=== PATIENT | female | born 1940 | race Caucasian/White ===

== ENCOUNTER 2022-06-12 14:27 | Inpatient (IN) | payer MEDICARE ==
[~2022-06-12] VITALS: Ht 177.8 cm; Wt 54.4 kg
--- NOTE | 2022-06-12 14:35 | NUR ---
BIB [facility] FROM HOME,C/O BACK PAIN 5 AFTER A SYNCOPAL EPISODE AND GLF. THE PATIENT IS ALERT AND ABLE TO MAKE NEEDS KNOWN. IN ROOM AIR AND DENIES SOB. RESPIRATION REGULAR AND UNLABORED. WILL CONTINUE TO MONITOR THE PATIENT.
--- NOTE | 2022-06-12 15:53 | NUR ---
COVID ANTIGEN SWAB DONE AND SENT TO THE LAB
[2022-06-12] MEDS ORDERED: MORPHINE SULFATE INJ 2 MG/ML DISP.SYRIN ONE ×2 (15:56→18:19)
[2022-06-12 15:58] LABS: BASOPHILS # (AUTO) 0.1 K/uL (0.0-0.2); BASOPHILS % (AUTO) 0.5 % (0.0-2.0); EOSINOPHILS % (AUTO) 1.5 % (0.0-6.0); HEMATOCRIT 27 % (33-45); HEMOGLOBIN 8.1 g/dL (11.5-14.8); LYMPHOCYTES # (AUTO) 2.5 K/uL (0.8-4.8); LYMPHOCYTES % (AUTO) 19.6 % (20.0-44.0); MEAN CORPUSCULAR HGB CONC 30 g/dl (31.0-36.0); MEAN CORPUSCULAR VOLUME 71 fL (82-100); MONOCYTES # (AUTO) 1.1 K/uL (0.1-1.30); MONOCYTES % (AUTO) 9.1 % (2.0-12.0); NEUTROPHILS # (AUTO) 8.7 K/uL (1.8-8.9); NEUTROPHILS % (AUTO) 69.3 % (43.0-81.0); PLATELET COUNT (AUTO) 618 K/uL (150-450); RED BLOOD CELL COUNT(AUTO) 3.78 MIL/uL (4.0-5.2); WHITE BLOOD COUNT (AUTO) 12.5 K/uL (4.3-11.0)
[2022-06-12] MEDS ORDERED: HYDROCODONE/APAP 5/325MG TABLET PO ONE (16:00)
--- NOTE | 2022-06-12 16:12 | NUR ---
MOVE SHEET SUBMITTED.
[2022-06-12 16:22] LABS: CALCIUM, SERUM 9.6 mg/dL (8.5-10.1); CARBON DIOXIDE 30 mmol/L (21-32); CHLORIDE 100 mmol/L (98-107); CREATININE 0.7 mg/dL (0.6-1.3); GLUCOSE 124 mg/dL (74-106); POTASSIUM 3.9 mmol/L (3.5-5.1); SODIUM SERUM 134 mmol/L (136-145); UREA NITROGEN, BLOOD 19 mg/dL (7-18)
[2022-06-12] MEDS ORDERED: ALEN70TA80 PO (16:22)
[2022-06-12] MEDS ORDERED: PRED10TA PO (16:22)
[2022-06-12] MEDS ORDERED: DULO60CA64 PO (16:22)
[2022-06-12] MEDS ORDERED: HYDR25TA4 PO (16:22)
[2022-06-12] MEDS ORDERED: MORPHINE SULFATE INJ 2 MG/ML DISP.SYRIN IV ONE ×2 (16:30→18:30)
[2022-06-12 16:34] LABS: ALANINE AMINOTRANSFERASE 28 U/L (12-78); ALBUMIN 1.9 g/dL (3.4-5.0); ALKALINE PHOSPHATASE 139 U/L (46-116); ASPARTATE AMINOTRANSFERASE 51 U/L (15-37); BILIRUBIN,DIRECT 0.1 mg/dL (0.0-0.2); BILIRUBIN,TOTAL 0.4 mg/dL (0.2-1.0); TOTAL PROTEIN, SERUM 7.1 g/dL (6.4-8.2)
[2022-06-12] MEDS ORDERED: IV NS 0.9% 250 ML IV ONE (16:56)
[2022-06-12] MEDS ORDERED: IOHEXOL-350 100 ML VIAL IV ONE (16:56)
[2022-06-12 17:16] LABS: EOSINOPHILS % (MANUAL) 1 % (0-4); LYMPHOCYTES % (MANUAL) 19 % (16-48); MONOCYTES % (MANUAL) 6 % (0-11.0); NEUTROPHILS % (MANUAL) 74 (42-76)
--- NOTE | 2022-06-12 19:14 | NUR ---
REPORT GIVEN TO NURSE VELEZ FOR YAQUELIN
[2022-06-12] MEDS ORDERED: hydrALAZINE HCL IV 20 MG VIAL IV PRN (22:00)
[2022-06-12] MEDS ORDERED: ONDANSETRON HCL/PF 4 MG/2 ML VIAL IVP PRN (22:00)
[2022-06-12] MEDS ORDERED: ACETAMINOPHEN 325 MG TABLET PO PRN (22:00)
[2022-06-12] MEDS ORDERED: IV NS 0.9% 1,000 ML IV SCH (22:00)
--- NOTE | 2022-06-12 22:56 | NUR ---
PT TRANSFERRED TO TELE 116-1 VIA ACLS PROTOCOL. REPORT GIVEN TO KIRAN BRICEÑO FOR YAQUELIN
--- NOTE | 2022-06-12 23:00 | NUR ---
INDUSTRIAL SALES ENGINEER ADMITTING NOTES REPORT RECEIVED FROM AGUSTIN. PATIENT WAS TRANSFERRED FROM ER VIA GURNEY, WITH NO SIGNS OF DISTRESS. ORIENTED PATIENT TO ROOM SET UP AND EDUCATED PATIENT ON THE USE OF CALL LIGHT. V/S TAKEN, STABLE AND RECORDED. BP 146/63, RR 20, AK 88, O2 SAT 99% AND TEMP 97.9 WITH BED SCALE WEIGHT OF 129 LBS. SKIN ASSESSMENT DONE AND PICTURES TAKEN. UTERINE PROLAPSE AND HEMORRHOIDS PRESENT. INFORMED DR. ZAMORA. ALL BELONGING CHECKED AND BELONGIN LIST SIGNED. WILL CONTINUE TO MONITOR THE PATIENT AND WILL CARRY OUT ACTIVE MD ORDERS.
[2022-06-12 23:45] LABS: FERRITIN 423 ng/mL (8-388)
[2022-06-12 23:46] LABS: IRON, SERUM 15 ug/dl (50-175); TOTAL IRON BINDING CAPACITY 238 ug/dl (250-450)
[2022-06-13] VITALS (7 sets, daily range): BP systolic 119–146; BP diastolic 53–66
[2022-06-13] MEDS: MORPHINE SULFATE INJ 2 MG/ML DISP.SYRIN IV PRN ×3 (00:23→21:58)
[2022-06-13] MEDS ORDERED: IV NS 0.9% 1,000 ML IV SCH (00:30)
[2022-06-13] MEDS ORDERED: FERROUS SULFATE (325 MG) 325 MG/TAB TABLET PO SCH (00:30)
--- NOTE | 2022-06-13 00:45 | NUR ---
RN NOTES-DIFFICULTY SWALLOWING PATIENT NOT ABLE TO TAKE PO MEDS DUE TO DIFFICULTY SWALLOWING. PATIENT IS IN PAIN IF HOB IS ELEVATED. PATIENT PREFERRED ALMOST FLAT ON BED. RISK OF ASPIRATION. INFORMED DR. ZAMORA. WILL CONTINUE TO MONITOR THE PATIENT.
[2022-06-13] MEDS: PANTOPRAZOLE 40 MG VIAL IV SCH ×3 (00:58→17:35)
[2022-06-13 07:13] LABS: BASOPHILS # (AUTO) 0.1 K/uL (0.0-0.2); BASOPHILS % (AUTO) 0.6 % (0.0-2.0); EOSINOPHILS % (AUTO) 3.7 % (0.0-6.0); HEMATOCRIT 26 % (33-45); HEMOGLOBIN 8.1 g/dL (11.5-14.8); LYMPHOCYTES # (AUTO) 2.3 K/uL (0.8-4.8); MEAN CORPUSCULAR HGB CONC 31 g/dl (31.0-36.0); MEAN CORPUSCULAR VOLUME 71 fL (82-100); MONOCYTES # (AUTO) 1.2 K/uL (0.1-1.30); NEUTROPHILS # (AUTO) 6.9 K/uL (1.8-8.9); NEUTROPHILS % (AUTO) 63.7 % (43.0-81.0); PLATELET COUNT (AUTO) 593 K/uL (150-450); RED BLOOD CELL COUNT(AUTO) 3.71 MIL/uL (4.0-5.2); WHITE BLOOD COUNT (AUTO) 10.8 K/uL (4.3-11.0)
--- NOTE | 2022-06-13 07:15 | NUR ---
TELE BRANCH CONTROLLER OPENING NOTES RECEIVED PATIENT SLEEPING. AWAKENS IN VERBAL STIMULI. A/O X 4. NO S/S PAIN NOTED AT THIS TIME. ON RA, BREATHING EVEN AND UNLABORED, NO DISTRESS OR SOB NOTED. FLAT ON BED. IV ACCESS ON LFA #20G RUNNING NS @ 70ML/HR, INFUSING WELL. PATIENT HAD DIFFICULTY SWALLOWING WATER, NOTIFIED DR. DR KWOK TO PLACE PATIENT NPO AND ORDERED A SWALLOW EVAL. SAFETY MEASURES WILL BE MAINTAINED THROUGHOUT THE SHIFT. WILL CONTINUE TO MONITOR.
--- NOTE | 2022-06-13 07:32 | NUR ---
GLASS BLOWING INSTRUCTOR CLOSING NOTES PATIENT CURRENTLY SLEEPING. AWAKENS IN VERBAL STIMULI. A/O X 4. NO S/S PAIN NOTED AT THIS TIME. ON RA, BREATHING EVEN AND UNLABORED, NO DISTRESS OR SOB NOTED. FLAT ON BED. PATIENT WITH CERVICAL COLLAR. IV ACCESS ON LFA #20G RUNNING NS @ 70ML/HR, INFUSING WELL. SAFETY MEASURES MAINTAINED THROUGHOUT THE SHIFT. WILL ENDORSE TO THE NEXT SHIFT
[2022-06-13 08:04] LABS: ALBUMIN 1.8 g/dL (3.4-5.0); BILIRUBIN,TOTAL 0.4 mg/dL (0.2-1.0); CALCIUM, SERUM 9.3 mg/dL (8.5-10.1); CREATININE 0.6 mg/dL (0.6-1.3); MAGNESIUM 1.6 mg/dL (1.8-2.4); POTASSIUM 3.7 mmol/L (3.5-5.1); TOTAL PROTEIN, SERUM 6.8 g/dL (6.4-8.2)
[2022-06-13] MEDS: HYDROCHLOROTHIAZIDE 25 MG TABLET PO SCH (09:00)
[2022-06-13] MEDS ORDERED: predniSONE 10 MG TABLET PO SCH (09:00)
[2022-06-13] MEDS: DULOXETINE HCL 30 MG CAPSULE.DR PO SCH (09:00)
[2022-06-13] MEDS: predniSONE 20 MG TABLET PO SCH (09:00)
--- NOTE | 2022-06-13 09:02 | NUR ---
ELIGIBILITY SERVICES REPRESENTATIVE NOTE PATIENT NPO. HELD PO MEDICATION
[2022-06-13] MEDS: Magnesium 1GM/D5W 100ML PREMIX 100 ML IV SCH ×2 (12:29→13:45)
--- NOTE | 2022-06-13 12:51 | NUR ---
given Mg via IV.
[2022-06-13 14:22] LABS: THYROID STIMULATING HORMONE 3.032 uIU/mL (0.358-3.74)
[2022-06-13] MEDS: SOD FERRIC GLUC 125 MG in IV NS 0.9% 100 ML IV SCH (15:40)
[2022-06-13] MEDS: IV NS 0.9% 1,000 ML IV PRN (17:09)
--- NOTE | 2022-06-13 18:26 | NUR ---
TELE [employer] [address] POLICE OFFICER CLOSING NOTES PATIENT AWAKE. A/O X 4. NO S/S PAIN NOTED AT THIS TIME. ON RA, BREATHING EVEN AND UNLABORED, NO DISTRESS OR SOB NOTED. BED SLIGHTLY ELEVATED. IV ACCESS ON LFA #20G RUNNING NS @ 70ML/HR, INFUSING WELL. SAFETY MEASURES IN PLACE. WILL ENDORSE TO METAL REED TUNER NURSE.
[2022-06-13 18:48] LABS: BILIRUBIN,URINE 1+ (NEGATIVE); COLOR,URINE YELLOW (YELLOW); LEUKOCYTE ESTERASE ,URINE TRACE (NEGATIVE); NITRITE, URINE NEGATIVE (NEGATIVE); PH,URINE 5.5 (5.0-8.0); PROTEIN,URINE TRACE mg/dl (NEGATIVE); UGLUCOSE NEGATIVE (NEGATIVE)
--- NOTE | 2022-06-13 19:47 | NUR ---
RN Opening Notes Received pt in bed, awake, speaking on phone. AOx4, able to make needs known. On NC 2LPM and tolerating well. No SOB noted. No s/sx of respiratory distress noted. Tele monitor detects SR with rate of 85. IV access LFA #20G running NS @ 70 mL/hr. Safety precautions in place: bed in lowest, locked position, siderails upX2, and brakes on. Table and call light within reach. All needs met at this time.
[2022-06-13 20:11] LABS: BACTERIA,URINE Many /HPF (None Seen); RBC,URINE 21-50 /HPF (0-2); SQUAMOUS EPITHELIAL CELL,UR Moderate /HPF (None Seen); WBC,URINE 0-2 /HPF (0-3)
[2022-06-13 20:12] LABS: FINE GRANULAR CASTS,URINE Few /LPF (None Seen)
--- NOTE | 2022-06-13 22:00 | NUR ---
RN Notes Administered morphine for pain per MD order. VS WNL.
[2022-06-13 22:23] LABS: HEMOGLOBIN 7.7 g/dL (11.5-14.8)
[2022-06-14] VITALS: BP 145/58
[2022-06-14 04:00] VITALS: BP 142/70
[2022-06-14] MEDS: IV NS 0.9% 1,000 ML IV PRN ×2 (06:05→20:15)
[2022-06-14 06:24] LABS: CALCIUM, SERUM 8.9 mg/dL (8.5-10.1); CREATININE 0.6 mg/dL (0.6-1.3); MAGNESIUM 1.9 mg/dL (1.8-2.4); PHOSPHORUS 3.4 mg/dL (2.5-4.9); POTASSIUM 3.2 mmol/L (3.5-5.1)
[2022-06-14 06:31] LABS: BASOPHILS # (AUTO) 0.1 K/uL (0.0-0.2); BASOPHILS % (AUTO) 0.5 % (0.0-2.0); EOSINOPHILS % (AUTO) 2.5 % (0.0-6.0); HEMATOCRIT 24 % (33-45); HEMOGLOBIN 7.2 g/dL (11.5-14.8); LYMPHOCYTES # (AUTO) 2.1 K/uL (0.8-4.8); MEAN CORPUSCULAR HGB CONC 30 g/dl (31.0-36.0); MEAN CORPUSCULAR VOLUME 71 fL (82-100); MONOCYTES # (AUTO) 1.2 K/uL (0.1-1.30); MONOCYTES % (AUTO) 10.7 % (2.0-12.0); NEUTROPHILS # (AUTO) 7.8 K/uL (1.8-8.9); NEUTROPHILS % (AUTO) 68.3 % (43.0-81.0); PLATELET COUNT (AUTO) 513 K/uL (150-450); RED BLOOD CELL COUNT(AUTO) 3.41 MIL/uL (4.0-5.2); WHITE BLOOD COUNT (AUTO) 11.5 K/uL (4.3-11.0)
--- NOTE | 2022-06-14 06:37 | NUR ---
RN Closing Notes Pt in bed, asleep, awakens to verbal stimuli. AOx4, able to make needs known. On NC 2LPM and tolerating well. No SOB noted. No s/sx of respiratory distress noted. Tele monitor detects SR with rate of 85. IV access LFA #20G running NS @ 70 mL/hr. All orders carried out. All needs met. Pt kept clean and dry. Safety precautions in place: bed in lowest, locked position, siderails upX2, and brakes on. Table and call light within reach. Will endorse to oncoming shift for YAQUELIN.
--- NOTE | 2022-06-14 07:25 | NUR ---
RN OPEN TELE NOTE: ALERT AND ORIENTED TO NAME TIME, PLACE AND SITUATION. RESPIRATIONS ARE EVEN AND UNLABORED WITH 02 2LPM NC SATING AT 96 %. IV ON LEFT FOREARM WITH IVF OF NS AT 70ML/HR. SEC ACCOUNTANT SINUS RHYTHM 94. HOB ELEVATED. BILATERAL HALF SIDE RAILS UP X2. BED IN LOW POSTION, EXIT ALARM ON. CALL LIGHT IN REACH.
[2022-06-14 08:00] VITALS: BP 132/58
[2022-06-14] MEDS ORDERED: POTASSIUM CHLORIDE 20 MEQ TAB.PRT.SR PO SCH (08:00)
[2022-06-14] MEDS: POTASSIUM CL. PREMIX PERIPHER. 50 ML IV SCH ×3 (08:04→11:07)
[2022-06-14 08:06] LABS: IMMUNOGLOBULIN A, SERUM 940 mg/dL (64-422); IMMUNOGLOBULIN G, SERUM 782 mg/dL (586-1602); IMMUNOGLOBULIN M, SERUM 18 mg/dL (26-217)
--- NOTE | 2022-06-14 08:55 | NUR ---
PATIENT NOTED TO HAVE PULLED OUT IV ON LEFT FOREARM. PATIENT STATED: "I AM SO SORRY, I JUST PULLED IT OUT." PATIENT TEACHING PROVIDED FOR USE OF IV, RISKS VS BENEFITS AND VERBALIZED UNDERSTANDING. WILL ESTABLISH A NEW LINE.
[2022-06-14] MEDS: PANTOPRAZOLE 40 MG TABLET.DR PO SCH (09:00)
[2022-06-14] MEDS: DULOXETINE HCL 30 MG CAPSULE.DR PO SCH (09:00)
[2022-06-14] MEDS: predniSONE 20 MG TABLET PO SCH (09:00)
[2022-06-14] MEDS: HYDROCHLOROTHIAZIDE 25 MG TABLET PO SCH (09:00)
--- NOTE | 2022-06-14 09:03 | NUR ---
JOSE SANTOS INFORMED OF RESIDENT ALL PO MEDS HELD DUE TO PATIENT IS NPO AWAITING [facility].
--- NOTE | 2022-06-14 09:08 | NUR ---
TOM GARCIA INFORMED PHARMACY INFORMED AND SOME OF THE MEDS ARE NOT ABLE TO CHANGE TO IV.
--- NOTE | 2022-06-14 09:30 | NUR ---
IV ON LEFT FOREARM 20G ESTABLISHED. PATENT. NO S/S OF COMPLICATIONS.
--- NOTE | 2022-06-14 11:30 | NUR ---
TOM GARCIA NP INFORMED DAUGHTER DAVID VENTURA WANTS TO TALK TO HER AT THIS GIVEN NUMBER .
[2022-06-14] MEDS: CEFTRIAXONE 1 G in IV D5W 50 ML IV SCH (11:40)
[2022-06-14 12:00] VITALS: BP 145/60
[2022-06-14 12:10] LABS: HEMOGLOBIN 7.4 g/dL (11.5-14.8)
[2022-06-14] MEDS: MORPHINE SULFATE INJ 2 MG/ML DISP.SYRIN IV PRN ×2 (13:30→20:14)
[2022-06-14] MEDS: SOD FERRIC GLUC 125 MG in IV NS 0.9% 100 ML IV SCH (14:05)
[2022-06-14 16:00] VITALS: BP 141/56
--- NOTE | 2022-06-14 18:57 | NUR ---
RN CLOSING TELE NOTE: ALERT AND ORIENTED TO NAME TIME, PLACE AND SITUATION. RESPIRATIONS ARE EVEN AND UNLABORED WITH 02 2LPM NC SATING AT 98 %. IV ON LEFT FOREARM WITH IVF OF NS AT 70ML/HR. COMMERCIAL ACCOUNT EXECUTIVE SINUS RHYTHM 96. HOB ELEVATED. BILATERAL HALF SIDE RAILS UP X2. BED IN LOW POSITION, EXIT ALARM ON. CALL LIGHT IN REACH.
--- NOTE | 2022-06-14 19:35 | NUR ---
RN OPENING NOTE RECEIVED PATIENT IN BED; AWAKE, ALERT AND ORIENTED X 4. ON O2 INHALATION @ 2 LPM VIA NASAL CANNULA; TOLERATING WELL. NOT IN ANY FORM OF RESPIRATORY OR CARDIAC DISTRESS NOTED AT THIS TIME. NO C/O PAIN OR DISCOMFORT. ON TELE MONITORING WHICH READS SR HR-87 BPM. WITH IV ACCESS ON LEFT FOREARM 20g; PATENT AND INTACT INFUSING WITH NS 1L RUNNING @ 70 ML/HR; FLUSHES WELL. ABLE TO MAKE NEEDS KNOWN. SAFETY PRECAUTIONS IMPLEMENTED: CALL LIGHT AND TABLE WITHIN REACH, SIDE RAILS UP X 3, BED IN LOWEST LOCKED POSITION. WILL CONTINUE PLAN OF CARE.
[2022-06-14 20:00] VITALS: BP 150/70
--- NOTE | 2022-06-14 20:14 | NUR ---
RN NOTE PT COMPLAINED PAIN ON HER BACK, NECK AND ABDOMEN WITH PAIN SCALE OF 8/10. PRN MORPHINE INJ 2 MG GIVEN IV ORDERED. WILL CONTINUE TO MONITOR AND REASSESS PT.
[2022-06-14 20:23] LABS: HEMOGLOBIN 7.2 g/dL (11.5-14.8)
[2022-06-15] VITALS: BP 145/54
[2022-06-15 04:00] VITALS: BP 126/56
--- NOTE | 2022-06-15 06:55 | NUR ---
RN CLOSING NOTE PATIENT IN BED; AWAKE, A/O X 4. ON O2 INHALATION @ 2 LPM VIA NASAL CANNULA; WELL TOLERATED. IN NO ACUTE DISTRESS. NO C/O PAIN OR DISCOMFORT. ON TELE MONITORING WHICH READS SR HR-97 BPM. WITH IV ACCESS ON LEFT FOREARM 20g; PATENT AND INTACT INFUSING WITH NS 1L RUNNING @ 70 ML/HR; FLUSHES WELL. ABLE TO MAKE NEEDS KNOWN. SAFETY PRECAUTIONS MAINTAINED: CALL LIGHT AND TABLE WITHIN REACH, SIDE RAILS UP X 3, BED IN LOWEST LOCKED POSITION. ENDORSED TO MORNING SHIFT FOR YAQUELIN.
--- NOTE | 2022-06-15 07:05 | NUR ---
RN OPENING NOTE PATIENT IN BED; AWAKE, A/O X 4. O2 @ 2 LPM VIA NASAL CANNULA; WELL TOLERATED. IN NO ACUTE DISTRESS. NO C/O PAIN OR DISCOMFORT. ON TELE MONITOR SR, IV ACCESS LEFT FOREARM 20g; PATENT AND INTACT, NS RUNNING @ 70 ML/HR; FLUSHES WELL. PT NPO UNTIL SWALLOW EVALUATION. ABLE TO MAKE NEEDS KNOWN. SAFETY PRECAUTIONS MAINTAINED: CALL LIGHT AND TABLE WITHIN REACH, SIDE RAILS UP X 3, BED IN LOWEST LOCKED POSITION. WILL CONTINUE TO MONITOR.
[2022-06-15 08:00] VITALS: BP 128/59
[2022-06-15] MEDS: predniSONE 20 MG TABLET PO SCH (08:34)
[2022-06-15] MEDS: DULOXETINE HCL 30 MG CAPSULE.DR PO SCH (08:34)
[2022-06-15] MEDS: PANTOPRAZOLE 40 MG TABLET.DR PO SCH (08:34)
[2022-06-15] MEDS: HYDROCHLOROTHIAZIDE 25 MG TABLET PO SCH (08:37)
[2022-06-15 08:59] LABS: BASOPHILS # (AUTO) 0.1 K/uL (0.0-0.2); BASOPHILS % (AUTO) 0.6 % (0.0-2.0); EOSINOPHILS % (AUTO) 2.9 % (0.0-6.0); HEMATOCRIT 24 % (33-45); HEMOGLOBIN 7.3 g/dL (11.5-14.8); LYMPHOCYTES % (AUTO) 18.4 % (20.0-44.0); MEAN CORPUSCULAR HGB CONC 30 g/dl (31.0-36.0); MEAN CORPUSCULAR VOLUME 72 fL (82-100); MONOCYTES % (AUTO) 9.4 % (2.0-12.0); NEUTROPHILS # (AUTO) 7.4 K/uL (1.8-8.9); NEUTROPHILS % (AUTO) 68.7 % (43.0-81.0); PLATELET COUNT (AUTO) 493 K/uL (150-450); RED BLOOD CELL COUNT(AUTO) 3.35 MIL/uL (4.0-5.2); WHITE BLOOD COUNT (AUTO) 10.8 K/uL (4.3-11.0)
[2022-06-15 10:01] LABS: CALCIUM, SERUM 8.7 mg/dL (8.5-10.1); CARBON DIOXIDE 23 mmol/L (21-32); CHLORIDE 105 mmol/L (98-107); CREATININE 0.5 mg/dL (0.6-1.3); GLUCOSE 85 mg/dL (74-106); MAGNESIUM 1.7 mg/dL (1.8-2.4); PHOSPHORUS 2.8 mg/dL (2.5-4.9); POTASSIUM 3.4 mmol/L (3.5-5.1); SODIUM SERUM 138 mmol/L (136-145); UREA NITROGEN, BLOOD 13 mg/dL (7-18)
[2022-06-15] MEDS: MORPHINE SULFATE INJ 2 MG/ML DISP.SYRIN IV PRN ×2 (10:14→21:13)
[2022-06-15] MEDS: CEFTRIAXONE 1 G in IV D5W 50 ML IV SCH (10:41)
[2022-06-15 11:54] LABS: HEMOGLOBIN 7.3 g/dL (11.5-14.8)
[2022-06-15 12:00] VITALS: BP 135/65
[2022-06-15] MEDS: SOD FERRIC GLUC 125 MG in IV NS 0.9% 100 ML IV SCH (13:23)
[2022-06-15] MEDS ORDERED: HYDROCODONE/APAP 5/325MG TABLET PO PRN (15:30)
[2022-06-15] MEDS ORDERED: HYDROCODONE/APAP 10/325MG TABLET PO PRN (15:30)
[2022-06-15 16:00] VITALS: BP 138/70
--- NOTE | 2022-06-15 19:11 | NUR ---
RN CLOSING NOTE PATIENT IN BED; AWAKE, A/O X 4. ON O2 INHALATION @ 2 LPM VIA NASAL CANNULA; WELL TOLERATED. IN NO ACUTE DISTRESS. NO C/O PAIN OR DISCOMFORT. ON TELE MONITORING WHICH READS SR HR-98 BPM. WITH IV ACCESS ON LEFT FOREARM 20g; PATENT AND INTACT, FLUSHES WELL. PATIENT IS SCHEDULED FOR CT NEEDLE RENAL MASS BIOPSY FOR MORNING, WILL BE NPO AFTER MIDNIGHT. SAFETY PRECAUTIONS MAINTAINED: CALL LIGHT AND TABLE WITHIN REACH, SIDE RAILS UP X 3, BED IN LOWEST LOCKED POSITION. ENDORSED TO TECHNICAL SUPPORT ENGINEER FOR YAQUELIN.
[2022-06-15 20:00] VITALS: BP 128/60
--- NOTE | 2022-06-15 20:00 | NUR ---
RN OPENING NOTE PATIENT IN BED; AWAKE. PT A/O X 4, ABLE TO VERBALIZE NEEDS. ON O2 @ 2 LPM VIA NASAL CANNULA; O2 WELL TOLERATED. NO ACUTE DISTRESS NOTED. NO C/O PAIN OR DISCOMFORT AT THIS TIME. ON TELE MONITOR SR. IV ACCESS TO LEFT FOREARM 20G, PATENT AND INTACT, AND FLUSHING WELL, WITH NS RUNNING @ 70 ML/HR. SAFETY PRECAUTIONS MAINTAINED: CALL LIGHT AND TABLE WITHIN REACH, SIDE RAILS UP X 3, BED IN LOWEST LOCKED POSITION. WILL CONTINUE TO MONITOR.
[2022-06-15 20:48] LABS: HEMOGLOBIN 7.6 g/dL (11.5-14.8)
--- NOTE | 2022-06-15 21:13 | NUR ---
MOUNTAIN GUIDE NOTE PT REPORTS BACK PAIN. MORPHINE IS ADMINISTERED TO PT.
[2022-06-15] MEDS: IV NS 0.9% 1,000 ML IV PRN (23:43)
[2022-06-16] VITALS: BP 127/70
--- NOTE | 2022-06-16 | NUR ---
HOUSEKEEPING LAUNDRY WORKER NOTE PT IS NPO NOW. PT IS AWARE THAT SHE CAN NO LONGER EAT OR DRINK DUE TO CT NEEDLE BIOPSY SCHEDULED FOR TODAY.
[2022-06-16 04:00] VITALS: BP 129/71
[2022-06-16 05:55] LABS: BASOPHILS % (AUTO) 0.4 % (0.0-2.0); EOSINOPHILS % (AUTO) 2.4 % (0.0-6.0); HEMATOCRIT 25 % (33-45); HEMOGLOBIN 7.4 g/dL (11.5-14.8); LYMPHOCYTES # (AUTO) 2.1 K/uL (0.8-4.8); LYMPHOCYTES % (AUTO) 21.1 % (20.0-44.0); MEAN CORPUSCULAR HGB CONC 30 g/dl (31.0-36.0); MEAN CORPUSCULAR VOLUME 71 fL (82-100); MONOCYTES % (AUTO) 10.3 % (2.0-12.0); NEUTROPHILS # (AUTO) 6.6 K/uL (1.8-8.9); NEUTROPHILS % (AUTO) 65.8 % (43.0-81.0); PLATELET COUNT (AUTO) 564 K/uL (150-450); RED BLOOD CELL COUNT(AUTO) 3.52 MIL/uL (4.0-5.2)
[2022-06-16 06:14] LABS: CALCIUM, SERUM 9.1 mg/dL (8.5-10.1); CREATININE 0.6 mg/dL (0.6-1.3); MAGNESIUM 1.5 mg/dL (1.8-2.4); PHOSPHORUS 2.3 mg/dL (2.5-4.9); POTASSIUM 3.4 mmol/L (3.5-5.1)
[2022-06-16 07:07] LABS: *SPE A/G RATIO 0.5 (0.7-1.7); *SPE ALPHA-1-GLOBULIN 0.4 g/dL (0.0-0.4); *SPE ALPHA-2-GLOBULIN 1.3 g/dL (0.4-1.0); *SPE BETA GLOBULIN 1.6 g/dL (0.7-1.3); *SPE M-SPIKE Not Observed g/dL (Not Observed)
--- NOTE | 2022-06-16 07:10 | NUR ---
RN OPENING NOTE PATIENT IN BED ASLEEP. O2 @ 2 LPM VIA NASAL CANNULA; WELL TOLERATED. IN NO ACUTE DISTRESS. ON TELE MONITOR SR, IV ACCESS LEFT FOREARM 20g; PATENT AND INTACT, NS RUNNING @ 70 ML/HR; FLUSHES WELL. NPO STARTED AFTER MIDNIGHT FOR PLANNED CT NEEDLE BIOPSY OF RENAL MASS. SAFETY PRECAUTIONS MAINTAINED: CALL LIGHT AND TABLE WITHIN REACH, SIDE RAILS UP X 3, BED IN LOWEST LOCKED POSITION. WILL CONTINUE TO MONITOR.
--- NOTE | 2022-06-16 07:50 | NUR ---
GAMEPLAY PROGRAMMER CLOSING NOTE LEFT PT SLEEPING IN BED. PT A/O X 4, ABLE TO VERBALIZE NEEDS. NO ACUTE DISTRESS NOTED. PT LEFT IN STABLE CONDITION. ALL NEEDS ATTENDED, PT IS CLEANED, AND DRY. SAFETY MEASURES IN PLACE. WILL ENDORSE PT TO AM SHIFT NURSE FOR YAQUELIN.
[2022-06-16 08:00] VITALS: BP 142/66
[2022-06-16] MEDS: predniSONE 20 MG TABLET PO SCH (08:52)
[2022-06-16] MEDS: HYDROCHLOROTHIAZIDE 25 MG TABLET PO SCH (08:52)
[2022-06-16] MEDS: DULOXETINE HCL 30 MG CAPSULE.DR PO SCH (08:52)
[2022-06-16] MEDS: PANTOPRAZOLE 40 MG TABLET.DR PO SCH (08:53)
[2022-06-16] MEDS: CEFTRIAXONE 1 G in IV D5W 50 ML IV SCH (09:53)
[2022-06-16] MEDS ORDERED: MAGNESIUM OXIDE 400 MG TABLET PO ONE (10:30)
[2022-06-16] MEDS ORDERED: POTASSIUM CHLORIDE 20 MEQ TAB.PRT.SR PO SCH (11:00)
[2022-06-16 11:46] LABS: HEMOGLOBIN 7.7 g/dL (11.5-14.8)
[2022-06-16 12:00] VITALS: BP 133/71
[2022-06-16] MEDS ORDERED: FENTANYL PF 250MCG/5ML AMPUL IV PRN (13:30)
[2022-06-16] MEDS ORDERED: FLUMAZENIL 0.5 MG VIAL IV PRN (13:30)
[2022-06-16] MEDS ORDERED: MIDAZOLAM HCL 2 MG/2ML VIAL IV PRN (13:30)
[2022-06-16] MEDS ORDERED: NALOXONE PREFILLED SYRINGE 2 MG/2 ML SYRINGE IV PRN (13:30)
--- NOTE | 2022-06-16 14:45 | NUR ---
PATIENT UNDERWENT CT NEEDLE RENAL MASS BIOPSY. TAKEN TO THE RADIOLOGY DEPARTMENT 13:10, BROUGHT BACK 14:50. CONDITION STABLE, AWAKE, ALERT, RESPOND TO QUESTIONS, ON O2 VIA NC AT 2L, SAT 98%. WILL CONTINUE TO MONITOR.
[2022-06-16] MEDS: SOD FERRIC GLUC 125 MG in IV NS 0.9% 100 ML IV SCH (15:32)
[2022-06-16 16:00] VITALS: BP 126/74
[2022-06-16] MEDS ORDERED: NEUTRA PHOS 1 POWD.PACKET GT ONE (16:00)
[2022-06-16] MEDS ORDERED: NEUTRA PHOS 1 POWD.PACKET PO ONE (16:00)
--- NOTE | 2022-06-16 19:19 | NUR ---
RN CLOSING NOTE PATIENT IN BED; AWAKE, A/O X 4. ON O2 @ 2 LPM VIA NASAL CANNULA; WELL TOLERATED. IN NO ACUTE DISTRESS. NO C/O PAIN OR DISCOMFORT. ON TELE MONITORING WHICH READS SR HR-98 BPM. WITH IV ACCESS ON LEFT FOREARM 20g; PATENT AND INTACT, FLUSHES WELL. PATIENT UNDERWENT CT NEEDLE RENAL MASS BIOPSY, TOLERATED WELL. SAFETY PRECAUTIONS MAINTAINED: CALL LIGHT AND TABLE WITHIN REACH, SIDE RAILS UP X 3, BED IN LOWEST LOCKED POSITION. ENDORSED TO RECREATION ASSISTANT FOR YAQUELIN.
--- NOTE | 2022-06-16 19:45 | NUR ---
MS RN OPENING NOTE JUST RECEIVED REPORT FROM DAY SHIFT RN. PATIENT IS LYING IN BED WATCHING TV. SHE IS ALERT AND ORIENTED, AO X 2, BUT VERY FORGETFUL. PT IS ON 2LPM OXYGEN VIA NC, TOLERATED WELL. NO S /S OF DISTRESS OR SOB. PT HAS IV ACCESS AT HER LEFT FA, #20G, [id number] NS @ 70 ML/HR. IV SITE IS PATENT AND INTACT. PT DENIES OF HAVING PAIN AT THIS MOMENT. SAFETY MEASURES ARE IN PLACED: BED IN LOWEST AND LOCKED POSITION; SIDE RAILS UP X 2; BED ALARM IS SET. CALL LIGHT AND TABLE ARE WITHIN REACH. WILL CONTINUE MONITORING THE PATIENT AND PROVIDE THE CARE PT NEEDS.
[2022-06-16 20:00] VITALS: BP 122/62
[2022-06-16] MEDS: IV NS 0.9% 1,000 ML IV PRN (20:34)
[2022-06-16 20:52] LABS: HEMOGLOBIN 7.5 g/dL (11.5-14.8)
[2022-06-17] VITALS: BP 129/68
[2022-06-17] MEDS: MORPHINE SULFATE INJ 2 MG/ML DISP.SYRIN IV PRN (04:12)
--- NOTE | 2022-06-17 04:15 | NUR ---
MS RN NOTE PATIENT STATED SHE WAS HAVING PAIN AT HER R FLANK AND BACK AREA. PAIN IS 8/10. PRN IV MEDICATION, MORPHINE, GIVEN PER MD ORDER
--- NOTE | 2022-06-17 06:52 | NUR ---
MS RN CLOSING NOTE PATIENT IS SLEEPING IN BED; EASILY BEING AROUSED. SHE IS ALERT AND ORIENTED, AO X 2, BUT VERY FORGETFUL. PT IS ON 2LPM OXYGEN VIA NC, TOLERATED WELL. NO S /S OF DISTRESS OR SOB. PT HAS IV ACCESS AT HER LEFT FA, #20G, RUNNING NS @ 70 ML/HR. IV SITE IS PATENT AND INTACT. PT DENIES OF HAVING PAIN AT THIS MOMENT. SAFETY MEASURES ARE IN PLACED: BED IN LOWEST AND LOCKED POSITION; SIDE RAILS UP X 2; BED ALARM IS SET. CALL LIGHT AND TABLE ARE WITHIN REACH. WILL ENDORSE NEXT SHIFT NURSE FOR CONTINUING PT CARE.
[2022-06-17 07:23] LABS: BASOPHILS % (AUTO) 0.4 % (0.0-2.0); EOSINOPHILS % (AUTO) 1.2 % (0.0-6.0); HEMATOCRIT 25 % (33-45); HEMOGLOBIN 7.7 g/dL (11.5-14.8); LYMPHOCYTES % (AUTO) 22.4 % (20.0-44.0); MEAN CORPUSCULAR HGB CONC 31 g/dl (31.0-36.0); MEAN CORPUSCULAR VOLUME 71 fL (82-100); MONOCYTES # (AUTO) 1.1 K/uL (0.1-1.30); MONOCYTES % (AUTO) 12.4 % (2.0-12.0); NEUTROPHILS # (AUTO) 5.8 K/uL (1.8-8.9); NEUTROPHILS % (AUTO) 63.6 % (43.0-81.0); PLATELET COUNT (AUTO) 533 K/uL (150-450); RED BLOOD CELL COUNT(AUTO) 3.54 MIL/uL (4.0-5.2); WHITE BLOOD COUNT (AUTO) 9.1 K/uL (4.3-11.0)
[2022-06-17] MEDS: DULOXETINE HCL 30 MG CAPSULE.DR PO SCH (08:31)
[2022-06-17] MEDS: PANTOPRAZOLE 40 MG TABLET.DR PO SCH (08:31)
[2022-06-17] MEDS: HYDROCHLOROTHIAZIDE 25 MG TABLET PO SCH (08:32)
[2022-06-17] MEDS: predniSONE 20 MG TABLET PO SCH (08:33)
[2022-06-17 09:00] VITALS: BP 130/62
[2022-06-17 09:23] LABS: CALCIUM, SERUM 9.2 mg/dL (8.5-10.1); CREATININE 0.6 mg/dL (0.6-1.3); MAGNESIUM 1.4 mg/dL (1.8-2.4); PHOSPHORUS 2.6 mg/dL (2.5-4.9); POTASSIUM 3.1 mmol/L (3.5-5.1)
[2022-06-17] MEDS: CEFTRIAXONE 1 G in IV D5W 50 ML IV SCH (09:56)
[2022-06-17] MEDS ORDERED: FENT50AM IV (10:01)
[2022-06-17] MEDS ORDERED: Hydrocodone/Apap 5/325MG PO (10:01)
[2022-06-17] MEDS ORDERED: [UNRECOGNIZED DRUG - CODE] IV (10:01)
[2022-06-17] MEDS ORDERED: HYDR-3980 PO (10:01)
[2022-06-17] MEDS ORDERED: NALO1DIS2 IV (10:01)
[2022-06-17] MEDS ORDERED: PRED20TA PO (10:01)
[2022-06-17] MEDS ORDERED: CEPH500T PO (10:01)
[2022-06-17] MEDS ORDERED: PANT40TA49 PO (10:01)
[2022-06-17] MEDS ORDERED: FERR325T23 PO (10:01)
[2022-06-17] MEDS ORDERED: POTA20PA3 PO (10:01)
[2022-06-17] MEDS: POTASSIUM CHLORIDE 20 MEQ POWDER PACKET PO SCH ×2 (10:12→11:02)
--- NOTE | 2022-06-17 10:42 | NUR ---
COVID TEST DONE
--- NOTE | 2022-06-17 12:45 | NUR ---
CALLED DAUGHTER AIYANA VENTURA, NO ONE ANSWER, LEFT A MESSAGE ON HER CELL PHONE RE: DISCHARGE TO [facility].
--- NOTE | 2022-06-17 12:57 | NUR ---
REPORT GIVEN TO KATERINE BRICEÑO AT [facility].
[2022-06-17] MEDS: SOD FERRIC GLUC 125 MG in IV NS 0.9% 100 ML IV SCH (14:00)
--- NOTE | 2022-06-17 14:35 | NUR ---
FERRILICIT NOT ADMINISTERED D/T PATIENT IS BEING DISCHARGED AT THIS TIME
--- NOTE | 2022-06-17 14:36 | NUR ---
DISCONTINUE IV LINE D/T TO DISCHARGE NOW.
--- NOTE | 2022-06-17 14:38 | NUR ---
PATIENT IS DISCHARGE TO [facility] IN STABLE CONDITION VIA AMBULANCE.
[2022-06-17 15:10] LABS: HEMOGLOBIN 8.1 g/dL (11.5-14.8)
[2022-06-19] MEDS ORDERED: ALENDRONATE 70 MG TABLET PO SCH (06:00)
== END 2022-06-17 14:50 | DRG 640 ==
LOC: ER 14:30 → TELE1 20:55 → MEDSG1 06-16 18:49
PROVIDERS: ADMIT Internal Medicine; ATTEND Registered Nurse
PROC: 0TB13ZX Excision of Left Kidney, Percutaneous Approach, Diagnostic (ICD-10-PCS; principal; 2022-06-12)
DX: E86.1 Hypovolemia (principal); E43 Unspecified severe protein-calorie malnutrition; C64.2 Malignant neoplasm of left kidney, except renal pelvis; M31.0 Hypersensitivity angiitis; C78.00 Secondary malignant neoplasm of unspecified lung; N39.0 Urinary tract infection, site not specified; D50.9 Iron deficiency anemia, unspecified; Z20.822 Contact with and (suspected) exposure to COVID-19; Z79.83 Long term (current) use of bisphosphonates; Z79.899 Other long term (current) drug therapy; D75.839 Thrombocytosis, unspecified; D72.829 Elevated white blood cell count, unspecified; M81.0 Age-related osteoporosis without current pathological fracture; E88.09 Other disorders of plasma-protein metabolism, not elsewhere classified; R13.10 Dysphagia, unspecified; Z80.1 Family history of malignant neoplasm of trachea, bronchus and lung; Z80.8 Family history of malignant neoplasm of other organs or systems; K62.3 Rectal prolapse; N81.10 Cystocele, unspecified; N32.9 Bladder disorder, unspecified; G89.3 Neoplasm related pain (acute) (chronic); B96.89 Other specified bacterial agents as the cause of diseases classified elsewhere; W18.30XA Fall on same level, unspecified, initial encounter; Y92.9 Unspecified place or not applicable; R29.6 Repeated falls
CPT/HCPCS: 36415; 70450-TC; 71045-TC; 72125-TC; 76942-TC; 77012-TC; 80048-TC; 80053-TC; 80076-TC; 81001; 82378; 82607-TC; 82728-TC; 82784; 83540-TC; 83605-TC; 83615-TC; 83735-TC; 84100-TC; 84155; 84165; 84443-TC; 84484-TC; 85025-TC; 85027-TC; 85610-TC; 85730-TC; 86334; 86850-TC; 87081-TC; 87086-TC; 92526; 92611-TC; 93307-TC; 97530-TC; A4223; C9113; C9803; G0378; J0696; J2270; J2916; J3475; J3480; J7030; J7050; J7060; Q9967